=== PATIENT | female | born 1985 | race Native Hawaiian/Other Pacific Islander ===

== ENCOUNTER 2017-06-22 10:02 | Emergency (ER) | payer OTHER ==
[2017-06-22 10:00] VITALS: TEMP 98.3
[2017-06-22 10:45] VITALS: BP 123/62
== END 2017-06-22 10:55 | disposition short-term general hospital (02) ==
LOC: ED 10:02
DX: S06.0X0A Concussion without loss of consciousness, initial encounter (principal); S01.81XA Laceration without foreign body of other part of head, initial encounter; S01.21XA Laceration without foreign body of nose, initial encounter; M54.2 Cervicalgia; W55.22XA Struck by cow, initial encounter; Y92.39 Other specified sports and athletic area as the place of occurrence of the external cause
CPT/HCPCS: 96361; 96365; 96375; 96376; 99285; J0690; J1170; J2405